=== PATIENT | male | born 1970 ===

== ENCOUNTER 2021-07-16 13:35 | Emergency (ER) | payer BC ==
[~2021-07-16] VITALS: Ht 170.2 cm; Wt 82.0 kg
[2021-07-16] MEDS ORDERED: DEXAMETHASONE 4MG/ML 1ML VIAL IV ONE (15:15)
[2021-07-16 16:30] VITALS: BP 137/85
== END 2021-07-16 17:31 | disposition home or self-care (01) ==
LOC: ER 13:35
DX: U07.1 COVID-19 (principal); B34.9 Viral infection, unspecified
CPT/HCPCS: 71045; 96374; 99283; J1100